=== PATIENT | female | born 1975 | race Caucasian/White ===

== ENCOUNTER 2016-06-26 12:59 | Emergency (ER) | payer OTHER ==
[2016-06-26 13:53] LABS: BASO % 0.4 % (0.0-1.0); EOS # 0.1 K/mm3 (0.0-0.50); EOS % 1.2 % (0.0-3.0); LARGE UNSTAINED CELL # 0.1 K/mm3 (0.0-0.4); LARGE UNSTAINED CELL % 2.5 % (0.0-4.0); LYMPH % 18.8 % (24.0-44.0); MEAN CORPUSCULAR HEMOGLOBIN 31.1 pg (27.0-33.0); MEAN CORPUSCULAR HGB CONC 35.1 g/dl (32.0-36.5); MEAN CORPUSCULAR VOLUME 88.4 fl (80.0-96.0); MONO # 0.4 K/mm3 (0.0-0.8); MONO % 7.9 % (0.0-5.0); NEUTROPHILS # 3.7 K/mm3 (1.8-7.7); NEUTROPHILS % 69.2 % (36.0-66.0); PLATELET COUNT, AUTOMATED 324 k/mm3 (150-450); RED CELL DISTRIBUTION WIDTH 11.9 % (11.5-14.5); WHITE BLOOD COUNT 5.4 K/mm3 (4.0-10.0)
[2016-06-26 13:55] LABS: CONTROL LINE HCG INT CTR LINE PRESENT
[2016-06-26 14:06] LABS: ALBUMIN 4.4 GM/DL (3.2-5.2); ALBUMIN/GLOBULIN RATIO 1.42 (1.00-1.93); ALKALINE PHOSPHATASE 49 U/L (45-117); ALT/SGPT 21 U/L (12-78); ANION GAP 10 MEQ/L (8-16); AST/SGOT 12 U/L (15-37); BILIRUBIN,DIRECT < 0.1 MG/DL (0.0-0.2); BILIRUBIN,TOTAL 0.4 MG/DL (0.2-1.0); BLOOD UREA NITROGEN 11 MG/DL (7-18); CALCIUM LEVEL 9.1 MG/DL (8.5-10.1); CARBON DIOXIDE LEVEL 25 MEQ/L (21-32); CHLORIDE LEVEL 107 MEQ/L (98-107); CREATININE FOR GFR 0.88 MG/DL (0.55-1.02); FREE T4 1.29 NG/DL (0.76-1.46); GLOMERULAR FILTRATION RATE > 60.0 (>58); GLUCOSE, FASTING 105 MG/DL (70-105); POTASSIUM SERUM 3.6 MEQ/L (3.5-5.1); SODIUM LEVEL 142 MEQ/L (136-145); TOTAL PROTEIN 7.5 GM/DL (6.4-8.2)
--- NOTE | 2016-06-26 14:33 | REP ---
Chest two views HISTORY: Palpitations Comparison: None The lungs are clear. The heart is normal in size. The pulmonary vasculature is normal in appearance. The bony structure is intact. IMPRESSION: No acute disease. Signed by Jorge Stovall MD 06/26/2016 02:24 P
--- NOTE | 2016-06-26 14:54 | REP ---
CT Head without contrast HISTORY: Syncope COMPARISON: None There is no intraparenchymal hemorrhage, acute infarct, mass or midline shift. The ventricular system is normal in appearance. There is no extra cerebral collection. There is no fracture. The visualized sinuses are clear. IMPRESSION: There is no intracranial lesion. Signed by Jorge Stovall MD 06/26/2016 02:46 P
--- NOTE | 2016-06-26 15:26 | EDDOCDS ---
Physician Documentation [facility] Name: Breanna Batres Age: 40 yrs Sex: Female : 1975 Arrival Date: 06/26/2016 Time: 12:59 Bed 5 Private MD: Disposition: 06/26 14:58 Critical Care: Critical care not applicable. pc Disposition: 06/26/16 15:04 Discharged to Home/Self Care. Impression: Tachycardia, unspecified - sinus, Aneurysm of heart - atrial septal; history of . - Condition is Stable. - Discharge Instructions: Palpitations. - Medication Reconciliation, Local Pharmacy Hours form. - Follow up: Narayan Terrell MD; When: Call to arrange an appointment; Reason: Further diagnostic work-up, To establish care. - Problem is new. - Symptoms have improved. HPI: 13:42 This 40 yrs old Female presents to ER via Walkin/Carried/Asstd with pc complaints of Chest Pain. 13:42 The history is obtained from the patient. She has multiple complaints but the most pc pressing is her heart rate ranging from mid-40's to 130, over the past few days. She complains of having a late menses followed by heavy flow and she believes she miscarried. She also has had a few small loose stools while urinating and thinks it is her endometriosis, as she has had in the past. She had a syncopal episode while walking up 6 stairs last week, remembering that' she felt lightheaded and then awakening on the floor, denies any injuries. She had RUQ abdominal pain 3 days ago and believes her eyes showed jaundice but were normal the next day and her pain is now gone. 13:43 She denies any fevers or chills, cough, OTC medication usage, denies illicit drug use.. pc The patient has been recently seen by their primary care provider, yesterday. She was diagnosed with an atrial aneurysm in 2008 and has never had follow up per her own choice. Historical: - Allergies: no known allergies; - Home Meds: 1. folic acid 1 mg Oral tab 1 tab once daily - PMHx: Endometriosis; atrial aneurysm; rash; - PSHx: left ovarian cystectomy; Tonsillectomy; - The history from nurses notes was reviewed: and I agree with what is documented. - Social history: Smoking status: Patient states former smoker of tobacco. No barriers to communication noted, The patient speaks fluent Amharic. - : The pt / caregiver states he / she is not on anticoagulants. Home medication list is obtained from the patient. - Hospitalizations: : No recent hospitalization is reported. - Exposure Risk Screening:: None identified. - Immunization history:: All immunizations up-to-date. - Family history: Not pertinent. - Social history:: the patient is a non-smoker, the patient drinks alcohol, socially. 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 pc Exam: 13:43 General Appearance: no acute distress, alert. pc 13:43 EENT: normal eye inspection, ears, nose and throat normal, pharynx normal, mucous membranes moist 13:43 Neck: The exam reveals no acute abnormalities. ROM is normal and painless. No nuchal rigidity is noted.. 13:43 Respiratory: no respiratory distress, normal breath sounds, chest non-tender. 13:43 CVS: regular rhythm, normal S1 and S2, no murmurs, strong peripheral pulses, normal capillary refill, the patient is tachycardic, at 116 bpm. 13:43 Abdomen: soft, non-tender, no organomegaly, normal bowel sounds. 13:43 Back: normal inspection. 13:43 Skin: skin color is normal, warm, dry. 13:43 Extremities: The extremities have a grossly normal appearance, are non-tender, without acute ROM abnormalities. 13:43 Neuro: oriented x 3, cranial nerves normal as tested, no motor deficits, no sensory deficits. 13:43 Psych: normal mood. Vital Signs: 13:01 BP 177 / 85; Pulse 136; Resp 20; Temp 97.7; Pulse Ox 98% ; Weight 61.69 kg / 136 lbs; cmb Height 5 ft. 6 in. (167.64 cm); Pain 3/10; 15:21 BP 152 / 81; Pulse 95; Resp 18; Pulse Ox 100% on R/A; Pain 0/10; lf1 13:01 Body Mass Index 21.95 (61.69 kg, 167.64 cm) cmb MDM: 13:14 ECG WITH READING ER PHYS+CARDIAG ordered. EDMS 13:37 [facility] [place], [place] Payment Agreement was scanned into [employer] and attached to record. jp5 13:37 Financial registration complete. jp5 13:42 [employer] Past[employer] Cook/Pulse Ox/q 30 min VS ordered. pc 13:42 IV Saline Lock ordered. pc 13:42 Rhythm Strip to chart ordered. pc 13:43 Differential Diagnosis: sinus tachycardia; recent syncopal episode; abnormal menses; pc abdominal pain -resolved. Plan: EKG, labs, imaging. Test interpretation: EKG. 13:44 Chest, 2 View (pa\E\lat) Ordered. EDMS 13:44 Basic Metabolic Profile Ordered. EDMS 13:44 CBC with Diff Ordered. EDMS 13:44 Cardiac Injury Profile Ordered. EDMS 13:44 Troponin Ordered. EDMS 13:44 TSH with Free T4 Ordered. EDMS 13:44 Magnesium Level Ordered. EDMS 13:44 Liver Profile Ordered. EDMS 13:44 HCG,Serum Qualitative Ordered. EDMS 14:09 CBC with Diff Reviewed. pc 14:09 Liver Profile Reviewed. pc 14:09 Basic Metabolic Profile Reviewed. pc 14:09 Troponin Reviewed. pc 14:09 Magnesium Level Reviewed. pc 14:09 HCG,Serum Qualitative Reviewed. pc 14:10 TSH with Free T4 Reviewed. pc 14:10 Cardiac Injury Profile Reviewed. pc 14:26 Liver Profile Reviewed. pc 14:26 Basic Metabolic Profile Reviewed. pc 14:26 Cardiac Injury Profile Reviewed. pc 14:26 Troponin Reviewed. pc 14:26 TSH with Free T4 Reviewed. pc 14:26 Magnesium Level Reviewed. pc 14:29 CT Head Without Contrast Ordered. EDMS 14:58 Data reviewed: old medical records, vital signs, nurses notes, EKG(s), lab test pc results, all radiology studies and available results. Test interpretation: LAB - all labs as ordered have been reviewed, interpreted and considered in the overall management of the clinical presentation; X-RAY - interpreted by Radiologist and personally reviewed, 1 view chest no acute disease, interpreted by Radiologist and personally reviewed, Head CT; no acute disease. The patient has been re-examined and re-evaluated. The clinical presentation did not require any ED treatment or interventions. Physician consultation: Dr. Narayan Terrell MD was contacted at 14:59, regarding patient's condition, and advises the medications/treatment as provided. and agrees with the treatment provided and advises the discharge plans as outlined. Disposition: The historical points, examination findings, and any diagnostic results supporting the provided diagnosis, were discussed with the patient or legal guardian. The need for outpatient follow up with the provider listed on their discharge instructions was discussed. They were encouraged to return to [facility], or the nearest ED, if symptoms worsen/persist, or for any other questions/concerns. EC:43 Rate is 116 beats/min. Rhythm is regular, Sinus tachycardia. QRS Naper is Normal. DC pc interval is normal. QRS interval is normal. QT interval is normal. No Q waves. T waves are Normal. No ST changes noted. Clinical impression: Sinus tachycardia and Incomplete RBBB. Signatures: Dispatcher [employer] EDJamie Davidson MD MD pc Ford, Lisa,RN RN lf1 Giovana Deluca RN RN mk4 Marilyn Gerber jp5 The chart was reviewed and I authenticate all verbal orders and agree with the evaluation and treatment provided.Corrections: (The following items were deleted from the chart) 13:47 13:42 She has multiple complaints but raina most pressing is her heart rate ranging from pc mid-40's to 130, over te pats few days. She complains of beiong pc Attachments: 13:37 [facility] Payment Agreement jp5 MTDD
--- NOTE | 2016-06-26 15:26 | EDDOCDS ---
Nurse's Notes [facility] Name: Breanna Batres Age: 40 yrs Sex: Female : 1975 Arrival Date: 06/26/2016 Time: 12:59 Bed 5 Private MD: Diagnosis: Tachycardia, unspecified-sinus;Aneurysm of heart-atrial septal; history of Presentation: 06/26 13:09 Presenting complaint: Patient states: has had chest pain with rapid heartrate since mk4 this am , has had rapid heart rate in the past syncope x2 last week. Aspirin was not taken prior to arrival. 13:09 Acuity: JOSE RAUL Level 3 mk4 13:13 Adult Sepsis Screening: The patient does not have new or worsening altered mentation. mk4 Patient's respiratory rate is less than 22. Systolic blood pressure is greater than 100. Patient has a qSOFA score of 0- Negative Sepsis Screen. Suicide/Homicide risk assessment- the patient denies having any suicidal and/or homicidal ideations and does not present with any other emotional, behavioral or mental health complaints. 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 Transition of care: patient was not received from another setting of care. Red Flag criteria, patient assessed and taken directly to a bed. 13:13 Method Of Arrival: Walkin/Carried/Asstd mk4 Triage Assessment: 13:12 General: Appears in no apparent distress. Pain: Pain currently is 2 out of 10 on a pain mk4 scale. HIV screening NA for this visit Offered previously. 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 folic acid 1 mg Oral tab 1 tab once daily - PMHx: Endometriosis; atrial aneurysm; rash; - PSHx: left ovarian cystectomy; Tonsillectomy; - The history from nurses notes was reviewed: and I agree with what is documented. - Social history: Smoking status: Patient states former smoker of tobacco. No barriers to communication noted, The patient speaks fluent Ukrainian. - : The pt / caregiver states he / she is not on anticoagulants. Home medication list is obtained from the patient. - Hospitalizations: : No recent hospitalization is reported. - Exposure Risk Screening:: None identified. - Immunization history:: All immunizations up-to-date. - Family history: Not pertinent. - Social history:: the patient is a non-smoker, the patient drinks alcohol, socially. Screenin:49 Screening information is obtained from the patient. Fall risk: No risks identified. mcp Assistance ADL's: requires no assistance with activities of daily living. Abuse/DV Screen: The patient / caregiver reports he/she is: not in a situation that causes fear, pain or injury. Nutritional screening: No deficits noted. Advance Directives: There is no active DNR order. home support is adequate. Assessment: 13:15 General: Appears in no apparent distress, Behavior is cooperative. Neurological: No mcp deficits noted. Cardiovascular: Rhythm is sinus tachycardia No ectopy. Respiratory: Airway is patent Respiratory effort is even, unlabored. Derm: Skin is pink, warm & dry. 14:15 General: Appears in no apparent distress, Behavior is cooperative. Neurological: No mcp deficits noted. Cardiovascular: Rhythm is sinus tachycardia No ectopy. Respiratory: Airway is patent Respiratory effort is even, unlabored. Derm: Skin is pink, warm & dry. 15:04 General: Appears in no apparent distress, Behavior is cooperative. Neurological: No mcp deficits noted. Respiratory: Airway is patent Respiratory effort is even, unlabored. Derm: Skin is pink, warm & dry. 15:21 Adult Sepsis Screening: The patient does not have new or worsening altered mentation. lf1 Patient's respiratory rate is less than 22. Systolic blood pressure is greater than 100. Patient has a qSOFA score of 0- Negative Sepsis Screen. General: Appears in no apparent distress, comfortable, Behavior is cooperative. Pain: Denies pain. Neurological: Level of Consciousness is awake, alert, Oriented to person, place, time. EENT: No deficits noted. Cardiovascular: Rhythm is sinus tachycardia Chest pain is denied Pt reports chest pain and shortness of breath that is 2-3/10 with ambulation. Respiratory: Respiratory effort is even, unlabored. GI: Denies nausea, vomiting. Derm: Skin is normal. Vital Signs: 13:01 BP 177 / 85; Pulse 136; Resp 20; Temp 97.7; Pulse Ox 98% ; Weight 61.69 kg; Height 5 cmb ft. 6 in. (167.64 cm); Pain 3/10; 15:21 BP 152 / 81; Pulse 95; Resp 18; Pulse Ox 100% on R/A; Pain 0/10; lf1 13:01 Body Mass Index 21.95 (61.69 kg, 167.64 cm) cmb Vitals: 13:01 Log In Time: June 26, 2016 at 12:59. RN notified that patient meets Red Flag cmb criteria. ED Course: 13:00 Patient visited by Magdalena Sánchez. cmb 13:00 Patient moved to Waiting cmb 13:09 Patient moved to 5 mk4 13:10 Triage Initiated mk4 13:17 Patient visited by Tiarra Olivares. dem1 13:17 EKG done. (by ED staff). Reviewed by Jamie Bass MD. dem1 13:20 Jamie Bass MD is Attending Physician. pc 13:24 Patient name changed from Breanna\S\\S\Rive\S\ to Breanna\S\ \S\Rice. EDMS 13:33 Patient visited by Jamie Bass MD. pc 13:37 [facility] [place] Payment Agreement was scanned into [employer] and attached to record. [facility] 13:48 HCG,Serum Qualitative Sent. [facility] 13:48 Liver Profile Sent. [facility] 13:48 Magnesium Level Sent. [facility] 13:48 TSH with Free T4 Sent. [facility] 13:48 Basic Metabolic Profile Sent. [facility] 13:48 CBC with Diff Sent. [facility] 13:48 Cardiac Injury Profile Sent. [facility] 13:48 Troponin Sent. [facility] 13:49 Patient visited by Dolly Brink RN. [facility] 13:49 The patient / caregiver is instructed regarding the plan of care and ED course. Patient abhishek has correct armband on for positive identification. Placed in gown. Bed in low position. Call light in reach. refractory technician on. Pulse ox on. NIBP on. 13:49 Inserted saline lock: 20 gauge in right antecubital area and blood collected. The [facility] patient tolerated the procedure well. Labs drawn. (by ED staff). Sent per order to lab. 14:50 Patient visited by Marisa Pérez PCA. ct3 15:04 Patient visited by Dolly Brink, MOHSEN. mcp 15:04 Narayan Terrell MD is Referral Physician. pc 15:13 Chest, 2 View (pa\E\lat) Returned. EDMS 15:13 CT Head Without Contrast Returned. EDMS 15:21 Patient visited by Dori Watkins RN. lf1 15:21 Discontinued IV lock intact, bleeding controlled, pressure dressing applied, No lf1 redness/swelling at site. No procedures done that require assistance. Order Results: Lab Order: Basic Metabolic Profile; SPEC'M 06/26/16 13:26 Test: GLUCOSE, FASTING; Value: 105; Range: 70-105; Units: MG/DL; Status: F Test: BLOOD UREA NITROGEN; Value: 11; Range: 7-18; Units: MG/DL; Status: F Test: CREATININE FOR GFR; Value: 0.88; Range: 0.55-1.02; Units: MG/DL; Status: F Test: GLOMERULAR FILTRATION RATE; Value: > 60.0; Range: >58; Status: F Test: SODIUM LEVEL; Value: 142; Range: 136-145; Units: MEQ/L; Status: F Test: POTASSIUM SERUM; Value: 3.6; Range: 3.5-5.1; Units: MEQ/L; Status: F Test: CHLORIDE LEVEL; Value: 107; Range: 98-107; Units: MEQ/L; Status: F Test: CARBON DIOXIDE LEVEL; Value: 25; Range: 21-32; Units: MEQ/L; Status: F Test: ANION GAP; Value: 10; Range: 8-16; Units: MEQ/L; Status: F Test: CALCIUM LEVEL; Value: 9.1; Range: 8.5-10.1; Units: MG/DL; Status: F Test Note: ; Units are mL/min/1.73 m2 Chronic Kidney Disease Staging per NKF: Stage I & II GFR >=60 Normal to Mildly Decreased Stage III GFR 30-59 Moderately Decreased Stage IV GFR 15-29 Severely Decreased Stage V GFR <15 Very Little GFR Left ESRD GFR <15 on PARTICLE BOARD SUPERVISOR Lab Order: CBC with Diff; SPEC'M 06/26/16 13:26 Test: WHITE BLOOD COUNT; Value: 5.4; Range: 4.0-10.0; Units: K/mm3; Status: F Test: RED BLOOD COUNT; Value: 4.34; Range: 4.00-5.40; Units: M/mm3; Status: F Test: HEMOGLOBIN; Value: 13.5; Range: 12.0-16.0; Units: g/dl; Status: F Test: HEMATOCRIT; Value: 38.4; Range: 36.0-47.0; Units: %; Status: F Test: MEAN CORPUSCULAR VOLUME; Value: 88.4; Range: 80.0-96.0; Units: fl; Status: F Test: MEAN CORPUSCULAR HEMOGLOBIN; Value: 31.1; Range: 27.0-33.0; Units: pg; Status: F Test: MEAN CORPUSCULAR HGB CONC; Value: 35.1; Range: 32.0-36.5; Units: g/dl; Status: F Test: RED CELL DISTRIBUTION WIDTH; Value: 11.9; Range: 11.5-14.5; Units: %; Status: F Test: PLATELET COUNT, AUTOMATED; Value: 324; Range: 150-450; Units: k/mm3; Status: F Test: NEUTROPHILS %; Value: 69.2; Range: 36.0-66.0; Abnormal: Above high normal; Units: %; Status: F Test: LYMPH %; Value: 18.8; Range: 24.0-44.0; Abnormal: Below low normal; Units: %; Status: F Test: MONO %; Value: 7.9; Range: 0.0-5.0; Abnormal: Above high normal; Units: %; Status: F Test: EOS %; Value: 1.2; Range: 0.0-3.0; Units: %; Status: F Test: BASO %; Value: 0.4; Range: 0.0-1.0; Units: %; Status: F Test: LARGE UNSTAINED CELL %; Value: 2.5; Range: 0.0-4.0; Units: %; Status: F Test: NEUTROPHILS #; Value: 3.7; Range: 1.8-7.7; Units: K/mm3; Status: F Test: LYMPH #; Value: 1.0; Range: 1.5-4.5; Abnormal: Below low normal; Units: K/mm3; Status: F Test: MONO #; Value: 0.4; Range: 0.0-0.8; Units: K/mm3; Status: F Test: EOS #; Value: 0.1; Range: 0.0-0.50; Units: K/mm3; Status: F Test: BASO #; Value: 0.0; Range: 0.0-0.2; Units: K/mm3; Status: F Test: LARGE UNSTAINED CELL #; Value: 0.1; Range: 0.0-0.4; Units: K/mm3; Status: F Lab Order: Cardiac Injury Profile; [facility] 06/26/16 13: Test: CPK CREATINE PHOSPHOKINASE; Value: 105; Range: 26-192; Units: U/L; Status: F Test: CK-MB VALUE MASS; Value: 1.0; Range: 0.0-3.6; Units: NG/ML; Status: F Test: MB/CK RELATIVE INDEX; Value: 0.95; Range: < OR =4; Status: F Test Note: ; DIAGNOSIS CRITERIA MMB ng/ml Relative Index (RI) NON-AMI < or = 5 N/A LEMON ZONE > 5 < or = 4 AMI > 5 > 4 Lab Order: Troponin; [facility] 06/26/16: Test: TROPONIN I; Value: < 0.02; Range: < 0.10; Units: NG/ML; Status: F Test Note: ; Troponin I Reference Interval for [employer] LOCI: 99th Percentile= 0.00-0.045 ng/ml Risk Stratification: <= 0.10 ng/ml Decreased Risk for Adverse Clinical Events. 0.10-1.50 ng/ml Increased Risk for Adverse Clinical Events. Evaluation of additional criterion and/or repeat testing in 2-6 hours is suggested to rule out myocardial damage. >= 1.50 ng/ml Indicative of Myocardial Injury. Lab Order: TSH with Free T4; [facility] 06/26/16 13: Test: THYROID STIMULATING HORMONE; Value: 1.700; Range: 0.358-3.740; Units: uIU/ML; Status: F Test: FREE T4; Value: 1.29; Range: 0.76-1.46; Units: NG/DL; Status: F Lab Order: Magnesium Level; [facility] 06/26/16 13: Test: MAGNESIUM LEVEL; Value: 2.0; Range: 1.8-2.4; Units: MG/DL; Status: F Lab Order: Liver Profile; [facility] 06/26/16 13: Test: AST/SGOT; Value: 12; Range: 15-37; Abnormal: Below low normal; Units: U/L; Status: F Test: ALT/SGPT; Value: 21; Range: 12-78; Units: U/L; Status: F Test: ALKALINE PHOSPHATASE; Value: 49; Range: 45-117; Units: U/L; Status: F Test: BILIRUBIN,TOTAL; Value: 0.4; Range: 0.2-1.0; Units: MG/DL; Status: F Test: BILIRUBIN,DIRECT; Value: < 0.1; Range: 0.0-0.2; Units: MG/DL; Status: F Test: TOTAL PROTEIN; Value: 7.5; Range: 6.4-8.2; Units: GM/DL; Status: F Test: ALBUMIN; Value: 4.4; Range: 3.2-5.2; Units: GM/DL; Status: F Test: ALBUMIN/GLOBULIN RATIO; Value: 1.42; Range: 1.00-1.93; Status: F Lab Order: HCG,Serum Qualitative; SPEC'M 06/26/16 13:26 Test: HCG, SERUM QUALITATIVE; Value: NEGATIVE; Range: NEGATIVE; Status: F Radiology Order: Chest, 2 View (pa\E\lat) Test: Chest, 2 View (pa\E\lat) REASON FOR EXAMINATION: palpitations; Chest two views; ; HISTORY: Palpitations; ; Comparison: None; ; The lungs are clear. The heart is normal in size. The pulmonary vasculature is; normal in appearance. The bony structure is intact.; ; IMPRESSION: No acute disease.; ; ; Signed by; Jorge Stovall MD 06/26/2016 02:24 P; Radiology Order: CT Head Without Contrast Test: CT Head Without Contrast REASON FOR EXAMINATION: Syncope; CT Head without contrast; ; HISTORY: Syncope; ; COMPARISON: None; ; There is no intraparenchymal hemorrhage, acute infarct, mass or midline shift.; The ventricular system is normal in appearance. There is no extra cerebral; collection. There is no fracture. The visualized sinuses are clear.; ; IMPRESSION: There is no intracranial lesion.; ; ; ; ; Signed by; Jorge Stovall MD 06/26/2016 02:46 P; Outcome: 15:04 Discharge ordered by Provider. 15:21 Discharge Assessment: Patient awake, alert and oriented x 3. No cognitive and/or lf1 functional deficits noted. Patient verbalized understanding of disposition instructions. Patient awake and alert. Oriented to person, place and time. Patient verbalized understanding of disposition instructions. Patient has no functional deficits. patient administered narcotics - no. The following High Risk Discharge criteria are identified: None. Discharged to home ambulatory. Condition: improved. Discharge instructions given to patient, Instructed on discharge instructions, follow up and referral plans. Demonstrated understanding of instructions, Pt was receptive of discharge instructions/ teaching. CT Study completed. Property :Personal belongings accompany Pt. 15:25 Patient left the ED. lf1 Signatures: Dispatcher [employer] EDMS Jamie Bass MD MD pc Peters, Mary, RN RN Dori PendletonRN RN lf1 Marisa Pérez, PATRICIA DIGITAL SALES DIRECTOR ct3 Tiarra Olivares [place] cmb King, Margaret, RN RN 4 Marilyn Gerber jp5 RONY
--- NOTE | 2016-06-27 07:27 | ECGEPIP ---
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
--- NOTE | 2016-06-28 16:26 | EDDOCDS ---
Physician Documentation [facility] Name: Breanna Batres Age: 40 yrs Sex: Female : 1975 Arrival Date: 06/26/2016 Time: 12:59 Bed 5 Private MD: Disposition: 06/26 14:58 Critical Care: Critical care not applicable. pc Disposition: 06/26/16 15:04 Discharged to Home/Self Care. Impression: Tachycardia, unspecified - sinus, Aneurysm of heart - atrial septal; history of . - Condition is Stable. - Discharge Instructions: Palpitations. - Medication Reconciliation, Local Pharmacy Hours form. - Follow up: Narayan Terrell MD; When: Call to arrange an appointment; Reason: Further diagnostic work-up, To establish care. - Problem is new. - Symptoms have improved. HPI: 13:42 This 40 yrs old Female presents to ER via Walkin/Carried/Asstd with pc complaints of Chest Pain. 13:42 The history is obtained from the patient. She has multiple complaints but the most pc pressing is her heart rate ranging from mid-40's to 130, over the past few days. She complains of having a late menses followed by heavy flow and she believes she miscarried. She also has had a few small loose stools while urinating and thinks it is her endometriosis, as she has had in the past. She had a syncopal episode while walking up 6 stairs last week, remembering that' she felt lightheaded and then awakening on the floor, denies any injuries. She had RUQ abdominal pain 3 days ago and believes her eyes showed jaundice but were normal the next day and her pain is now gone. 13:43 She denies any fevers or chills, cough, OTC medication usage, denies illicit drug use.. pc The patient has been recently seen by their primary care provider, yesterday. She was diagnosed with an atrial aneurysm in 2008 and has never had follow up per her own choice. Historical: - Allergies: no known allergies; - Home Meds: 1. folic acid 1 mg Oral tab 1 tab once daily - PMHx: Endometriosis; atrial aneurysm; rash; - PSHx: left ovarian cystectomy; Tonsillectomy; - The history from nurses notes was reviewed: and I agree with what is documented. - Social history: Smoking status: Patient states former smoker of tobacco. No barriers to communication noted, The patient speaks fluent Yi. - : The pt / caregiver states he / she is not on anticoagulants. Home medication list is obtained from the patient. - Hospitalizations: : No recent hospitalization is reported. - Exposure Risk Screening:: None identified. - Immunization history:: All immunizations up-to-date. - Family history: Not pertinent. - Social history:: the patient is a non-smoker, the patient drinks alcohol, socially. 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 pc Exam: 13:43 General Appearance: no acute distress, alert. pc 13:43 EENT: normal eye inspection, ears, nose and throat normal, pharynx normal, mucous membranes moist 13:43 Neck: The exam reveals no acute abnormalities. ROM is normal and painless. No nuchal rigidity is noted.. 13:43 Respiratory: no respiratory distress, normal breath sounds, chest non-tender. 13:43 CVS: regular rhythm, normal S1 and S2, no murmurs, strong peripheral pulses, normal capillary refill, the patient is tachycardic, at 116 bpm. 13:43 Abdomen: soft, non-tender, no organomegaly, normal bowel sounds. 13:43 Back: normal inspection. 13:43 Skin: skin color is normal, warm, dry. 13:43 Extremities: The extremities have a grossly normal appearance, are non-tender, without acute ROM abnormalities. 13:43 Neuro: oriented x 3, cranial nerves normal as tested, no motor deficits, no sensory deficits. 13:43 Psych: normal mood. Vital Signs: 13:01 BP 177 / 85; Pulse 136; Resp 20; Temp 97.7; Pulse Ox 98% ; Weight 61.69 kg / 136 lbs; cmb Height 5 ft. 6 in. (167.64 cm); Pain 3/10; 15:21 BP 152 / 81; Pulse 95; Resp 18; Pulse Ox 100% on R/A; Pain 0/10; lf1 13:01 Body Mass Index 21.95 (61.69 kg, 167.64 cm) cmb MDM: 13:14 ECG WITH READING ER PHYS+CARDIAG ordered. EDMS 13:37 [facility] Payment Agreement was scanned into [employer] and attached to record. jp5 13:37 Financial registration complete. jp5 13:42 Sales And Customer Relations Rep/Pulse Ox/q 30 min VS ordered. pc 13:42 IV Saline Lock ordered. pc 13:42 Rhythm Strip to chart ordered. pc 13:43 Differential Diagnosis: sinus tachycardia; recent syncopal episode; abnormal menses; pc abdominal pain -resolved. Plan: EKG, labs, imaging. Test interpretation: EKG. 13:44 Chest, 2 View (pa\E\lat) Ordered. EDMS 13:44 Basic Metabolic Profile Ordered. EDMS 13:44 CBC with Diff Ordered. EDMS 13:44 Cardiac Injury Profile Ordered. EDMS 13:44 Troponin Ordered. EDMS 13:44 TSH with Free T4 Ordered. EDMS 13:44 Magnesium Level Ordered. EDMS 13:44 Liver Profile Ordered. EDMS 13:44 HCG,Serum Qualitative Ordered. EDMS 14:09 CBC with Diff Reviewed. pc 14:09 Liver Profile Reviewed. pc 14:09 Basic Metabolic Profile Reviewed. pc 14:09 Troponin Reviewed. pc 14:09 Magnesium Level Reviewed. pc 14:09 HCG,Serum Qualitative Reviewed. pc 14:10 TSH with Free T4 Reviewed. pc 14:10 Cardiac Injury Profile Reviewed. pc 14:26 Liver Profile Reviewed. pc 14:26 Basic Metabolic Profile Reviewed. pc 14:26 Cardiac Injury Profile Reviewed. pc 14:26 Troponin Reviewed. pc 14:26 TSH with Free T4 Reviewed. pc 14:26 Magnesium Level Reviewed. pc 14:29 CT Head Without Contrast Ordered. EDMS 14:58 Data reviewed: old medical records, vital signs, nurses notes, EKG(s), lab test pc results, all radiology studies and available results. Test interpretation: LAB - all labs as ordered have been reviewed, interpreted and considered in the overall management of the clinical presentation; X-RAY - interpreted by Radiologist and personally reviewed, 1 view chest no acute disease, interpreted by Radiologist and personally reviewed, Head CT; no acute disease. The patient has been re-examined and re-evaluated. The clinical presentation did not require any ED treatment or interventions. Physician consultation: Dr. Narayan Terrell MD was contacted at 14:59, regarding patient's condition, and advises the medications/treatment as provided. and agrees with the treatment provided and advises the discharge plans as outlined. Disposition: The historical points, examination findings, and any diagnostic results supporting the provided diagnosis, were discussed with the patient or legal guardian. The need for outpatient follow up with the provider listed on their discharge instructions was discussed. They were encouraged to return to [facility], or the nearest ED, if symptoms worsen/persist, or for any other questions/concerns. 06/27 11:53 ECG/EKG was scanned into [employer] and attached to record. EC/12 13:43 Rate is 116 beats/min. Rhythm is regular, Sinus tachycardia. QRS [place] is Normal. [place] pc interval is normal. QRS interval is normal. QT interval is normal. No Q waves. T waves are Normal. No ST changes noted. Clinical impression: Sinus tachycardia and Incomplete RBBB. Signatures: Dispatcher [employer] EDMS Jamie Bass MD MD pc Barnhardt, Gloria, Ajay Reg Dori Duran,RN RN lf1 Giovana Deluca RN RN mk4 Marilyn Gerber jp5 The chart was reviewed and I authenticate all verbal orders and agree with the evaluation and treatment provided.Corrections: (The following items were deleted from the chart) 13:47 13:42 She has multiple complaints but raina most pressing is her heart rate ranging from pc mid-40's to 130, over te pats few days. She complains of beiong pc Attachments: 13:37 [facility] Payment Agreement jp5 06/27 11:53 ECG/EKG Chart [facility]
--- NOTE | 2016-06-28 16:26 | EDDOCDS ---
Nurse's Notes [facility] Name: Breanna Batres Age: 40 yrs Sex: Female : 1975 Arrival Date: 06/26/2016 Time: 12:59 Bed 5 Private MD: Diagnosis: Tachycardia, unspecified-sinus;Aneurysm of heart-atrial septal; history of Presentation: 06/26 13:09 Presenting complaint: Patient states: has had chest pain with rapid heartrate since mk4 this am , has had rapid heart rate in the past syncope x2 last week. Aspirin was not taken prior to arrival. 13:09 Acuity: JOSE RAUL Level 3 mk4 13:13 Adult Sepsis Screening: The patient does not have new or worsening altered mentation. mk4 Patient's respiratory rate is less than 22. Systolic blood pressure is greater than 100. Patient has a qSOFA score of 0- Negative Sepsis Screen. Suicide/Homicide risk assessment- the patient denies having any suicidal and/or homicidal ideations and does not present with any other emotional, behavioral or mental health complaints. 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 Transition of care: patient was not received from another setting of care. Red Flag criteria, patient assessed and taken directly to a bed. 13:13 Method Of Arrival: Walkin/Carried/Asstd mk4 Triage Assessment: 13:12 General: Appears in no apparent distress. Pain: Pain currently is 2 out of 10 on a pain mk4 scale. HIV screening NA for this visit Offered previously. 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 folic acid 1 mg Oral tab 1 tab once daily - PMHx: Endometriosis; atrial aneurysm; rash; - PSHx: left ovarian cystectomy; Tonsillectomy; - The history from nurses notes was reviewed: and I agree with what is documented. - Social history: Smoking status: Patient states former smoker of tobacco. No barriers to communication noted, The patient speaks fluent Guamanian. - : The pt / caregiver states he / she is not on anticoagulants. Home medication list is obtained from the patient. - Hospitalizations: : No recent hospitalization is reported. - Exposure Risk Screening:: None identified. - Immunization history:: All immunizations up-to-date. - Family history: Not pertinent. - Social history:: the patient is a non-smoker, the patient drinks alcohol, socially. Screenin:49 Screening information is obtained from the patient. Fall risk: No risks identified. mcp Assistance ADL's: requires no assistance with activities of daily living. Abuse/DV Screen: The patient / caregiver reports he/she is: not in a situation that causes fear, pain or injury. Nutritional screening: No deficits noted. Advance Directives: There is no active DNR order. home support is adequate. Assessment: 13:15 General: Appears in no apparent distress, Behavior is cooperative. Neurological: No mcp deficits noted. Cardiovascular: Rhythm is sinus tachycardia No ectopy. Respiratory: Airway is patent Respiratory effort is even, unlabored. Derm: Skin is pink, warm & dry. 14:15 General: Appears in no apparent distress, Behavior is cooperative. Neurological: No mcp deficits noted. Cardiovascular: Rhythm is sinus tachycardia No ectopy. Respiratory: Airway is patent Respiratory effort is even, unlabored. Derm: Skin is pink, warm & dry. 15:04 General: Appears in no apparent distress, Behavior is cooperative. Neurological: No mcp deficits noted. Respiratory: Airway is patent Respiratory effort is even, unlabored. Derm: Skin is pink, warm & dry. 15:21 Adult Sepsis Screening: The patient does not have new or worsening altered mentation. lf1 Patient's respiratory rate is less than 22. Systolic blood pressure is greater than 100. Patient has a qSOFA score of 0- Negative Sepsis Screen. General: Appears in no apparent distress, comfortable, Behavior is cooperative. Pain: Denies pain. Neurological: Level of Consciousness is awake, alert, Oriented to person, place, time. EENT: No deficits noted. Cardiovascular: Rhythm is sinus tachycardia Chest pain is denied Pt reports chest pain and shortness of breath that is 2-3/10 with ambulation. Respiratory: Respiratory effort is even, unlabored. GI: Denies nausea, vomiting. Derm: Skin is normal. Vital Signs: 13:01 BP 177 / 85; Pulse 136; Resp 20; Temp 97.7; Pulse Ox 98% ; Weight 61.69 kg; Height 5 cmb ft. 6 in. (167.64 cm); Pain 3/10; 15:21 BP 152 / 81; Pulse 95; Resp 18; Pulse Ox 100% on R/A; Pain 0/10; lf1 13:01 Body Mass Index 21.95 (61.69 kg, 167.64 cm) cmb Vitals: 13:01 Log In Time: June 26, 2016 at 12:59. RN notified that patient meets Red Flag cmb criteria. ED Course: 13:00 Patient visited by Magdalena Sánchez. cmb 13:00 Patient moved to Waiting cmb 13:09 Patient moved to 5 mk4 13:10 Triage Initiated mk4 13:17 Patient visited by Tiarra Olivares. dem1 13:17 EKG done. (by ED staff). Reviewed by Jamie Bass MD. dem1 13:20 Jamie Bass MD is Attending Physician. pc 13:24 Patient name changed from Breanna\S\\S\Rive\S\ to Breanna\S\ \S\Rice. EDMS 13:33 Patient visited by Jamie Bass MD. pc 13:37 [place] [place] Agreement was scanned into [employer] and attached to record. [facility] 13:48 HCG,Serum Qualitative Sent. [facility] 13:48 Liver Profile Sent. [facility] 13:48 Magnesium Level Sent. [facility] 13:48 TSH with Free T4 Sent. [facility] 13:48 Basic Metabolic Profile Sent. [facility] 13:48 CBC with Diff Sent. [facility] 13:48 Cardiac Injury Profile Sent. [facility] 13:48 Troponin Sent. [facility] 13:49 Patient visited by Dolly Brink RN. [facility] 13:49 The patient / caregiver is instructed regarding the plan of care and ED course. Patient abhishek has correct armband on for positive identification. Placed in gown. Bed in low position. Call light in reach. front desk monitor on. Pulse ox on. NIBP on. 13:49 Inserted saline lock: 20 gauge in right antecubital area and blood collected. The [facility] patient tolerated the procedure well. Labs drawn. (by ED staff). Sent per order to lab. 14:50 Patient visited by Marisa Pérez PCA. ct3 15:04 Patient visited by Dolly Brink, MOHSEN. mcp 15:04 Narayan Terrell MD is Referral Physician. pc 15:13 Chest, 2 View (pa\E\lat) Returned. EDMS 15:13 CT Head Without Contrast Returned. EDMS 15:21 Patient visited by Dori Watkins RN. lf1 15:21 Discontinued IV lock intact, bleeding controlled, pressure dressing applied, No lf1 redness/swelling at site. No procedures done that require assistance. 06/27 07:42 EKG-ADULT Returned. EDMS 11:53 ECG/EKG was scanned into [employer] and attached to record. gb Order Results: Lab Order: Basic Metabolic Profile; SPEC'M 06/26/16 13:26 Test: GLUCOSE, FASTING; Value: 105; Range: 70-105; Units: MG/DL; Status: F Test: BLOOD UREA NITROGEN; Value: 11; Range: 7-18; Units: MG/DL; Status: F Test: CREATININE FOR GFR; Value: 0.88; Range: 0.55-1.02; Units: MG/DL; Status: F Test: GLOMERULAR FILTRATION RATE; Value: > 60.0; Range: >58; Status: F Test: SODIUM LEVEL; Value: 142; Range: 136-145; Units: MEQ/L; Status: F Test: POTASSIUM SERUM; Value: 3.6; Range: 3.5-5.1; Units: MEQ/L; Status: F Test: CHLORIDE LEVEL; Value: 107; Range: 98-107; Units: MEQ/L; Status: F Test: CARBON DIOXIDE LEVEL; Value: 25; Range: 21-32; Units: MEQ/L; Status: F Test: ANION GAP; Value: 10; Range: 8-16; Units: MEQ/L; Status: F Test: CALCIUM LEVEL; Value: 9.1; Range: 8.5-10.1; Units: MG/DL; Status: F Test Note: ; Units are mL/min/1.73 m2 Chronic Kidney Disease Staging per NKF: Stage I & II GFR >=60 Normal to Mildly Decreased Stage III GFR 30-59 Moderately Decreased Stage IV GFR 15-29 Severely Decreased Stage V GFR <15 Very Little GFR Left ESRD GFR <15 on [employer] Lab Order: CBC with Diff; SPEC'M 06/26/16 13:26 Test: WHITE BLOOD COUNT; Value: 5.4; Range: 4.0-10.0; Units: K/mm3; Status: F Test: RED BLOOD COUNT; Value: 4.34; Range: 4.00-5.40; Units: M/mm3; Status: F Test: HEMOGLOBIN; Value: 13.5; Range: 12.0-16.0; Units: g/dl; Status: F Test: HEMATOCRIT; Value: 38.4; Range: 36.0-47.0; Units: %; Status: F Test: MEAN CORPUSCULAR VOLUME; Value: 88.4; Range: 80.0-96.0; Units: fl; Status: F Test: MEAN CORPUSCULAR HEMOGLOBIN; Value: 31.1; Range: 27.0-33.0; Units: pg; Status: F Test: MEAN CORPUSCULAR HGB CONC; Value: 35.1; Range: 32.0-36.5; Units: g/dl; Status: F Test: RED CELL DISTRIBUTION WIDTH; Value: 11.9; Range: 11.5-14.5; Units: %; Status: F Test: PLATELET COUNT, AUTOMATED; Value: 324; Range: 150-450; Units: k/mm3; Status: F Test: NEUTROPHILS %; Value: 69.2; Range: 36.0-66.0; Abnormal: Above high normal; Units: %; Status: F Test: LYMPH %; Value: 18.8; Range: 24.0-44.0; Abnormal: Below low normal; Units: %; Status: F Test: MONO %; Value: 7.9; Range: 0.0-5.0; Abnormal: Above high normal; Units: %; Status: F Test: EOS %; Value: 1.2; Range: 0.0-3.0; Units: %; Status: F Test: BASO %; Value: 0.4; Range: 0.0-1.0; Units: %; Status: F Test: LARGE UNSTAINED CELL %; Value: 2.5; Range: 0.0-4.0; Units: %; Status: F Test: NEUTROPHILS #; Value: 3.7; Range: 1.8-7.7; Units: K/mm3; Status: F Test: LYMPH #; Value: 1.0; Range: 1.5-4.5; Abnormal: Below low normal; Units: K/mm3; Status: F Test: MONO #; Value: 0.4; Range: 0.0-0.8; Units: K/mm3; Status: F Test: EOS #; Value: 0.1; Range: 0.0-0.50; Units: K/mm3; Status: F Test: BASO #; Value: 0.0; Range: 0.0-0.2; Units: K/mm3; Status: F Test: LARGE UNSTAINED CELL #; Value: 0.1; Range: 0.0-0.4; Units: K/mm3; Status: F Lab Order: Cardiac Injury Profile; [facility] 06/26/16 13:26 Test: CPK CREATINE PHOSPHOKINASE; Value: 105; Range: 26-192; Units: U/L; Status: F Test: CK-MB VALUE MASS; Value: 1.0; Range: 0.0-3.6; Units: NG/ML; Status: F Test: MB/CK RELATIVE INDEX; Value: 0.95; Range: < OR =4; Status: F Test Note: ; DIAGNOSIS CRITERIA MMB ng/ml Relative Index (RI) NON-AMI < or = 5 N/A L[place]ON [place]ONE > 5 < or = 4 AMI > 5 > 4 Lab Order: Troponin; [facility] 06/26/16 13:26 Test: TROPONIN I; Value: < 0.02; Range: < 0.10; Units: NG/ML; Status: F Test Note: ; Troponin I Reference Interval for [place] LOCI: 99th Percentile= 0.00-0.045 ng/ml Risk Stratification: <= 0.10 ng/ml Decreased Risk for Adverse Clinical Events. 0.10-1.50 ng/ml Increased Risk for Adverse Clinical Events. Evaluation of additional criterion and/or repeat testing in 2-6 hours is suggested to rule out myocardial damage. >= 1.50 ng/ml Indicative of Myocardial Injury. Lab Order: TSH with Free T4; [facility] 13:26 Test: THYROID STIMULATING HORMONE; Value: 1.700; Range: 0.358-3.740; Units: uIU/ML; Status: F Test: FREE T4; Value: 1.29; Range: 0.76-1.46; Units: NG/DL; Status: F Lab Order: Magnesium Level; [facility] 06/26/16 13:26 Test: MAGNESIUM LEVEL; Value: 2.0; Range: 1.8-2.4; Units: MG/DL; Status: F Lab Order: Liver Profile; [facility] 06/26/16 13:26 Test: AST/SGOT; Value: 12; Range: 15-37; Abnormal: Below low normal; Units: U/L; Status: F Test: ALT/SGPT; Value: 21; Range: 12-78; Units: U/L; Status: F Test: ALKALINE PHOSPHATASE; Value: 49; Range: 45-117; Units: U/L; Status: F Test: BILIRUBIN,TOTAL; Value: 0.4; Range: 0.2-1.0; Units: MG/DL; Status: F Test: BILIRUBIN,DIRECT; Value: < 0.1; Range: 0.0-0.2; Units: MG/DL; Status: F Test: TOTAL PROTEIN; Value: 7.5; Range: 6.4-8.2; Units: GM/DL; Status: F Test: ALBUMIN; Value: 4.4; Range: 3.2-5.2; Units: GM/DL; Status: F Test: ALBUMIN/GLOBULIN RATIO; Value: 1.42; Range: 1.00-1.93; Status: F Lab Order: HCG,Serum Qualitative; SPEC'M 06/26/16 13:26 Test: HCG, SERUM QUALITATIVE; Value: NEGATIVE; Range: NEGATIVE; Status: F Radiology Order: EKG-ADULT Test: EKG-ADULT REASON FOR EXAMINATION: Chest Pain; Stationary ECG Study; [facility] - ED; ; Test Date: 2016-06-26; Pat Name: BREANNA BATRES Department:; Room: -; Gender: 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; : 1975 Requested By: Jamie Lopez; Order Number: [id number] Reading MD: Sherita Campa; Measurements; Intervals [place]; Rate: 116 P: 68; MS: 116 QRS: 3; QRSD: 85 T: 58; QT: 341; QTc: 475; Interpretive Statements; SINUS TACHYCARDIA WITH SHORT MS INTERVAL; POSSIBLE RIGHT VENTRICULAR CONDUCTION DELAY; MODERATE ST DEPRESSION; NO PRIOR FOR COMPARISON; Electronically Signed On 06-27-2016 7:26:43 EST by Sherita Cmapa; Radiology Order: Chest, 2 View (pa\E\lat) Test: Chest, 2 View (pa\E\lat) REASON FOR EXAMINATION: palpitations; Chest two views; ; HISTORY: Palpitations; ; Comparison: None; ; The lungs are clear. The heart is normal in size. The pulmonary vasculature is; normal in appearance. The bony structure is intact.; ; IMPRESSION: No acute disease.; ; ; Signed by; Jorge Stovall MD 06/26/2016 02:24 P; Radiology Order: CT Head Without Contrast Test: CT Head Without Contrast REASON FOR EXAMINATION: Syncope; CT Head without contrast; ; HISTORY: Syncope; ; COMPARISON: None; ; There is no intraparenchymal hemorrhage, acute infarct, mass or midline shift.; The ventricular system is normal in appearance. There is no extra cerebral; collection. There is no fracture. The visualized sinuses are clear.; ; IMPRESSION: There is no intracranial lesion.; ; ; ; ; Signed by; Jorge Stovall MD 06/26/2016 02:46 P; Outcome: 06/26 15:04 Discharge ordered by Provider. pc 15:21 Discharge Assessment: Patient awake, alert and oriented x 3. No cognitive and/or lf1 functional deficits noted. Patient verbalized understanding of disposition instructions. Patient awake and alert. Oriented to person, place and time. Patient verbalized understanding of disposition instructions. Patient has no functional deficits. patient administered narcotics - no. The following High Risk Discharge criteria are identified: None. Discharged to home ambulatory. Condition: improved. Discharge instructions given to patient, Instructed on discharge instructions, follow up and referral plans. Demonstrated understanding of instructions, Pt was receptive of discharge instructions/ teaching. CT Study completed. Property :Personal belongings accompany Pt. 15:25 Patient left the ED. lf1 Signatures: Dispatcher [employer] EDMS Jamie Bass MD MD pc Peters, Mary, RN RN Liliane Ferguson, Reg Reg Dori DuranRN RN lf1 Marisa Pérez, CATIA DESIGNER CATIA DESIGNER ct3 Tiarra Olivares dem1 Magdalena Sánchez Margaret, RN RN 4 Marilyn Gerber jp5 Chart Complete MTDD
--- NOTE | 2016-06-28 16:26 | EDDOCDS ---
Physician Documentation [facility] Name: Breanna Batres Age: 40 yrs Sex: Female : 1975 Arrival Date: 06/26/2016 Time: 12:59 Bed 5 Private MD: Disposition: 06/26 14:58 Critical Care: Critical care not applicable. pc Disposition: 06/26/16 15:04 Discharged to Home/Self Care. Impression: Tachycardia, unspecified - sinus, Aneurysm of heart - atrial septal; history of . - Condition is Stable. - Discharge Instructions: Palpitations. - Medication Reconciliation, Local Pharmacy Hours form. - Follow up: Narayan Terrell MD; When: Call to arrange an appointment; Reason: Further diagnostic work-up, To establish care. - Problem is new. - Symptoms have improved. HPI: 13:42 This 40 yrs old Female presents to ER via Walkin/Carried/Asstd with pc complaints of Chest Pain. 13:42 The history is obtained from the patient. She has multiple complaints but the most pc pressing is her heart rate ranging from mid-40's to 130, over the past few days. She complains of having a late menses followed by heavy flow and she believes she miscarried. She also has had a few small loose stools while urinating and thinks it is her endometriosis, as she has had in the past. She had a syncopal episode while walking up 6 stairs last week, remembering that' she felt lightheaded and then awakening on the floor, denies any injuries. She had RUQ abdominal pain 3 days ago and believes her eyes showed jaundice but were normal the next day and her pain is now gone. 13:43 She denies any fevers or chills, cough, OTC medication usage, denies illicit drug use.. pc The patient has been recently seen by their primary care provider, yesterday. She was diagnosed with an atrial aneurysm in 2008 and has never had follow up per her own choice. Historical: - Allergies: no known allergies; - Home Meds: 1. folic acid 1 mg Oral tab 1 tab once daily - PMHx: Endometriosis; atrial aneurysm; rash; - PSHx: left ovarian cystectomy; Tonsillectomy; - The history from nurses notes was reviewed: and I agree with what is documented. - Social history: Smoking status: Patient states former smoker of tobacco. No barriers to communication noted, The patient speaks fluent Polish. - : The pt / caregiver states he / she is not on anticoagulants. Home medication list is obtained from the patient. - Hospitalizations: : No recent hospitalization is reported. - Exposure Risk Screening:: None identified. - Immunization history:: All immunizations up-to-date. - Family history: Not pertinent. - Social history:: the patient is a non-smoker, the patient drinks alcohol, socially. DIRECTOR DISTRIBUTION: 13:12 LMP 06/26/2016 mk4 ROS: 13:43 All systems are negative except as listed. pc Exam: 13:43 General Appearance: no acute distress, alert. pc 13:43 EENT: normal eye inspection, ears, nose and throat normal, pharynx normal, mucous membranes moist 13:43 Neck: The exam reveals no acute abnormalities. ROM is normal and painless. No nuchal rigidity is noted.. 13:43 Respiratory: no respiratory distress, normal breath sounds, chest non-tender. 13:43 CVS: regular rhythm, normal S1 and S2, no murmurs, strong peripheral pulses, normal capillary refill, the patient is tachycardic, at 116 bpm. 13:43 Abdomen: soft, non-tender, no organomegaly, normal bowel sounds. 13:43 Back: normal inspection. 13:43 Skin: skin color is normal, warm, dry. 13:43 Extremities: The extremities have a grossly normal appearance, are non-tender, without acute ROM abnormalities. 13:43 Neuro: oriented x 3, cranial nerves normal as tested, no motor deficits, no sensory deficits. 13:43 Psych: normal mood. Vital Signs: 13:01 BP 177 / 85; Pulse 136; Resp 20; Temp 97.7; Pulse Ox 98% ; Weight 61.69 kg / 136 lbs; cmb Height 5 ft. 6 in. (167.64 cm); Pain 3/10; 15:21 BP 152 / 81; Pulse 95; Resp 18; Pulse Ox 100% on R/A; Pain 0/10; lf1 13:01 Body Mass Index 21.95 (61.69 kg, 167.64 cm) cmb MDM: 13:14 ECG WITH READING ER PHYS+CARDIAG ordered. EDMS 13:37 [facility] [place] Agreement was scanned into [employer] and attached to record. jp5 13:37 Financial registration complete. jp5 13:42 Maintenance Porter/Pulse Ox/q 30 min VS ordered. pc 13:42 IV Saline Lock ordered. pc 13:42 Rhythm Strip to chart ordered. pc 13:43 Differential Diagnosis: sinus tachycardia; recent syncopal episode; abnormal menses; pc abdominal pain -resolved. Plan: EKG, labs, imaging. Test interpretation: EKG. 13:44 Chest, 2 View (pa\E\lat) Ordered. EDMS 13:44 Basic Metabolic Profile Ordered. EDMS 13:44 CBC with Diff Ordered. EDMS 13:44 Cardiac Injury Profile Ordered. EDMS 13:44 Troponin Ordered. EDMS 13:44 TSH with Free T4 Ordered. EDMS 13:44 Magnesium Level Ordered. EDMS 13:44 Liver Profile Ordered. EDMS 13:44 HCG,Serum Qualitative Ordered. EDMS 14:09 CBC with Diff Reviewed. pc 14:09 Liver Profile Reviewed. pc 14:09 Basic Metabolic Profile Reviewed. pc 14:09 Troponin Reviewed. pc 14:09 Magnesium Level Reviewed. pc 14:09 HCG,Serum Qualitative Reviewed. pc 14:10 TSH with Free T4 Reviewed. pc 14:10 Cardiac Injury Profile Reviewed. pc 14:26 Liver Profile Reviewed. pc 14:26 Basic Metabolic Profile Reviewed. pc 14:26 Cardiac Injury Profile Reviewed. pc 14:26 Troponin Reviewed. pc 14:26 TSH with Free T4 Reviewed. pc 14:26 Magnesium Level Reviewed. pc 14:29 CT Head Without Contrast Ordered. EDMS 14:58 Data reviewed: old medical records, vital signs, nurses notes, EKG(s), lab test pc results, all radiology studies and available results. Test interpretation: LAB - all labs as ordered have been reviewed, interpreted and considered in the overall management of the clinical presentation; X-RAY - interpreted by Radiologist and personally reviewed, 1 view chest no acute disease, interpreted by Radiologist and personally reviewed, Head CT; no acute disease. The patient has been re-examined and re-evaluated. The clinical presentation did not require any ED treatment or interventions. Physician consultation: Dr. Narayan Terrell MD was contacted at 14:59, regarding patient's condition, and advises the medications/treatment as provided. and agrees with the treatment provided and advises the discharge plans as outlined. Disposition: The historical points, examination findings, and any diagnostic results supporting the provided diagnosis, were discussed with the patient or legal guardian. The need for outpatient follow up with the provider listed on their discharge instructions was discussed. They were encouraged to return to [facility], or the nearest ED, if symptoms worsen/persist, or for any other questions/concerns. 06/27 11:53 ECG/EKG was scanned into [employer] and attached to record. EC/12 13:43 Rate is 116 beats/min. Rhythm is regular, Sinus tachycardia. QRS [place] is Normal. LA pc interval is normal. QRS interval is normal. QT interval is normal. No Q waves. T waves are Normal. No ST changes noted. Clinical impression: Sinus tachycardia and Incomplete RBBB. Signatures: Dispatcher [employer] EDMS Jamie Bass MD MD pc Barnhardt, Gloria, Ajay Reg Dori Duran,RN RN lf1 Giovana Deluca RN RN mk4 Marilyn Gerber jp5 The chart was reviewed and I authenticate all verbal orders and agree with the evaluation and treatment provided.Corrections: (The following items were deleted from the chart) 13:47 13:42 She has multiple complaints but raina most pressing is her heart rate ranging from pc mid-40's to 130, over te pats few days. She complains of beiong pc Attachments: 13:37 [facility] Payment Agreement jp5 06/27 11:53 ECG/EKG Chart Complete [facility]
== END 2016-06-26 15:25 | disposition home or self-care (01) ==
LOC: M ED 12:59
DX: R00.0 Tachycardia, unspecified (principal); I45.10 Unspecified right bundle-branch block; I25.3 Aneurysm of heart; N80.9 Endometriosis, unspecified; Z79.899 Other long term (current) drug therapy

== ENCOUNTER → 2016-09-25 | Outpatient (CLI) | payer OTHER ==
--- NOTE | 2016-09-25 09:48 | REPMRS ---
Patient History The patient states she has not had a clinical breast exam in over a year. Patient is nulliparous. Family history of colorectal cancer in maternal uncle. Digital Mammo Screening Bilat: September 25, 2016 - Exam #: [id number] Bilateral CC and MLO view(s) were taken. Technologist: Eli Rausch, Technologist FINDINGS: The breast tissue is extremely dense which could obscure a lesion on mammography. There is no evidence of cancer on this mammogram. ASSESSMENT: BI-RADS/ACR category 2 mammogram. Benign finding(s). Recommendation Routine screening mammogram of both breasts in 1 year (for women over age 40). This mammogram was interpreted with the aid of an FDA-approved computer-aided dectection system. Electronically Signed By: Thomas Cox MD 09/25/16 0948
== END ==
LOC: M RAD 08:04
PROVIDERS: ATTEND Obstetrics & Gynecology
DX: Z12.31 Encounter for screening mammogram for malignant neoplasm of breast (principal)

== ENCOUNTER 2017-07-27 09:48 | Emergency (ER) | payer OTHER ==
[2017-07-27] MEDS: KETOROLAC TROMETHAMINE 10 MG TAB PO (10:48)
== END 2017-07-27 13:15 | disposition home or self-care (01) ==
LOC: M ED 09:48
DX: R10.2 Pelvic and perineal pain (principal); N80.9 Endometriosis, unspecified; N83.299 Other ovarian cyst, unspecified side; N85.4 Malposition of uterus; Z79.899 Other long term (current) drug therapy
CPT/HCPCS: 76856

== ENCOUNTER 2017-08-14 13:16 | Emergency (ER) | payer OTHER ==
[2017-08-14 15:47] LABS: BASO % 0.1 % (0.0-1.0); EOS % 0.1 % (0.0-3.0); HEMATOCRIT 35.6 % (36.0-47.0); HEMOGLOBIN 12.1 g/dl (12.0-16.0); IMMATURE GRANULOCYTE % 0.4 % (0-3.0); LYMPH # 0.7 10^3/uL (1.5-4.5); MEAN CORPUSCULAR HEMOGLOBIN 30.4 pg (27.0-33.0); MEAN CORPUSCULAR VOLUME 89.4 fl (80.0-96.0); MONO # 0.7 10^3/uL (0.0-0.8); MONO % 6.5 % (0.0-5.0); NEUTROPHILS # 8.9 10^3/uL (1.8-7.7); NEUTROPHILS % 85.9 % (36.0-66.0); PLATELET COUNT, AUTOMATED 365 10^3/uL (150-450); RED BLOOD COUNT 3.98 10^6/uL (4.00-5.40); RED CELL DISTRIBUTION WIDTH 12.2 % (11.5-14.5); WHITE BLOOD COUNT 10.4 10^3/uL (4.0-10.0)
[2017-08-14 15:52] LABS: KETONE, URINE AUTO RFX TRACE mg/dL (NEGATIVE); LEUKOCYTE ESTERASE UR AUTO RFX NEGATIVE (NEGATIVE); MUCUS, URINE RFX SMALL (NEGATIVE); NITRITE, URINE AUTO RFX NEGATIVE (NEGATIVE); RBC, URINE AUTO RFX 4 /HPF (0-3); SPECIFIC GRAVITY UR AUTO RFX 1.023 (1.002-1.035); SQUAM EPITHELIAL CELL UR AURFX 0 /HPF (0-6); WBC, URINE AUTO RFX 0 /HPF (0-3)
[2017-08-14 15:53] LABS: CONTROL LINE UCG INT CTR LINE PRESENT; URINE PREG TEST NEGATIVE (NEGATIVE)
[2017-08-14 16:01] LABS: D-DIMER QUANT 404.7 ng/ml (<500)
[2017-08-14 16:17] LABS: INFLUENZA A AMPLIFICATION NEGATIVE (NEGATIVE); INFLUENZA B AMPLIFICATION NEGATIVE (NEGATIVE)
[2017-08-14 16:24] LABS: LACTIC ACID SEPSIS PROTOCOL 0.8 MMOL/L (0.4-2.0)
[2017-08-14 16:24] LABS: ALBUMIN/GLOBULIN RATIO 1.54 (1.00-1.93); ALKALINE PHOSPHATASE 35 U/L (45-117); ALT/SGPT 15 U/L (12-78); ANION GAP 5 MEQ/L (8-16); AST/SGOT 7 U/L (7-37); BILIRUBIN,DIRECT < 0.1 MG/DL (0.0-0.2); BILIRUBIN,TOTAL 0.3 MG/DL (0.2-1.0); BLOOD UREA NITROGEN 14 MG/DL (7-18); C REACTIVE PROTEIN QUANTITATIV < 0.30 MG/DL (0.00-0.30); CALCIUM LEVEL 8.4 MG/DL (8.5-10.1); CARBON DIOXIDE LEVEL 27 MEQ/L (21-32); CHLORIDE LEVEL 110 MEQ/L (98-107); CREATININE FOR GFR 0.81 MG/DL (0.55-1.30); GLOMERULAR FILTRATION RATE > 60.0 (>58); GLUCOSE, FASTING 131 MG/DL (70-100); LIPASE 165 U/L (73-393); POTASSIUM SERUM 3.8 MEQ/L (3.5-5.1); SODIUM LEVEL 142 MEQ/L (136-145); TOTAL PROTEIN 6.6 GM/DL (6.4-8.2)
[2017-08-14] MEDS ORDERED: ISOVUE-370 76% 100ML VIAL (Q9967) As Ordered (16:51)
== END 2017-08-14 18:33 | disposition home or self-care (01) ==
LOC: M ED 13:16
DX: R00.2 Palpitations (principal); N83.201 Unspecified ovarian cyst, right side; I47.1 Supraventricular tachycardia; M32.9 Systemic lupus erythematosus, unspecified; Q21.1 Atrial septal defect; Z87.442 Personal history of urinary calculi; Z87.891 Personal history of nicotine dependence; Z79.899 Other long term (current) drug therapy; Z79.52 Long term (current) use of systemic steroids
CPT/HCPCS: Q9967